=== PATIENT | male | born 1965 | race Caucasian/White ===

== ENCOUNTER → 2017-03-14 | Day surgery (SDC) | payer OTHER ==
[~2017-03-14] MED LIST: LISINOPRIL PO; SIMVASTATIN20 MG PO
--- NOTE | ~2017-03-14 | OR ---
Unit #: [id number] #: [id number] Patient: ENZO SNEED [id number] [address] [id number] MR#: [id number] NAME: ENZO SNEED ROOM: Date of Procedure: 03/14/2017 Admission Date: 03/14/2017 Surgeon: Bolivar Cox Jr., M.D. : 1965 Attending Physician: Bolivar Cox Jr., M.D. Primary Care Physician: Susan Ricardo M.D. OPERATIVE REPORT INDICATION FOR PROCEDURE The patient is a 51-year-old white male, who presents desiring screening colonoscopy. He has had no previous colonoscopy in the past. He has had no change in bowel habits and no other problems. PREOPERATIVE DIAGNOSIS Desired screening colonoscopy, rule out pathology. POSTOPERATIVE DIAGNOSIS Multiple small polyps of the rectum, sigmoid, and descending colon. ANESTHESIA MAC anesthesia. PROCEDURES PERFORMED Flexible colonoscopy to the distal ileum with biopsies of multiple small polyps described above. DESCRIPTION OF PROCEDURE The patient was positioned in Rowe position with left side down. After being given MAC anesthesia, digital rectal examination was performed, which revealed no palpable mass or tenderness. No blood or stool within the rectal ampulla. The prostate was normal by palpation. The Olympus colonoscope was advanced into the anal canal up the rectum and retroflexed down to the area of the anorectal region. There was no evidence of any fissures. There were multiple internal hemorrhoids. The scope was then straightened and advanced up in the rectosigmoid area, where there were several small 1 mm polyps. Several of these were biopsied and sent to pathology without bleeding. The scope was then advanced up into the sigmoid colon into the descending colon, around the splenic flexure and the transverse colon, around hepatic flexure and ascending colon, down in the area of the cecum. The light from the tip of the scope could be seen transilluminating through right lower quadrant abdominal wall area. The scope was advanced up the distal ileum approximately 10 to 12 inches. There was no evidence of any ileitis or inflammatory bowel disease. The scope was slowly removed. In the area of the descending colon, there were several small polyps, 1 to 2 mm in diameter. These were biopsied and basically removed. One in the sigmoid which likewise was biopsied and basically removed. One in the descending colon area at approximately 70 cm. The scope was removed. There were no other polyps, no tumors, cancer, or AVMs. No evidence of any colitis, diverticulosis, or diverticulitis. The caliber of the colon appeared normal throughout Unit #: [id number] #: [id number] Patient: ENZO SNEED without evidence of narrowing or obstruction. The scope was removed. The patient tolerated the procedure well and discharged in satisfactory condition. Dictated by... Bolivar Cox Jr. MCed CARMONA/romi TD: 03/15/2017 03:45 JOB #: [id number] OPERATIVE REPORT Page 1 of 1 X Bolivar Cox MD X PROCEDURE OPERATIVE NOTE
== END | disposition home or self-care (01) ==
LOC: COPS 02-24 13:30
DX: Z12.11 Encounter for screening for malignant neoplasm of colon (principal); K63.5 Polyp of colon; K62.1 Rectal polyp; K64.8 Other hemorrhoids; I10 Essential (primary) hypertension; Z79.899 Other long term (current) drug therapy; E66.9 Obesity, unspecified; Z68.33 Body mass index [BMI] 33.0-33.9, adult; F17.200 Nicotine dependence, unspecified, uncomplicated; Z85.820 Personal history of malignant melanoma of skin; Z98.890 Other specified postprocedural states; Z82.49 Family history of ischemic heart disease and other diseases of the circulatory system; Z80.42 Family history of malignant neoplasm of prostate; Z82.5 Family history of asthma and other chronic lower respiratory diseases
CPT/HCPCS: 88305; J2250